=== PATIENT | female | born 1955 | race Caucasian/White ===

== ENCOUNTER 2017-10-01 19:51 | Emergency (ER) | payer OTHER ==
[~2017-10-01] VITALS: Ht 160 cm; Wt 44.0 kg
[2017-10-01 20:17] LABS: BASOPHIL (%) 0.2 % (0-1); EOSINOPHIL (%) 0 % (0-5); HEMATOCRIT 44.1 % (36.0-46.0); HEMOGLOBIN 15.7 G/DL (11.9-15.5); IMMATURE GRANULOCYTE (%) 0.7 % (0.0-0.7); LYMPHOCYTE COUNT 0.8 K/uL (1.0-2.8); MCH 31.6 PG (29.0-34.0); MCHC 35.6 G/DL (30.0-36.0); MCV 88.7 FL (83-99); MONOCYTE (%) 0.8 % (3-12); MONOCYTE COUNT 0.1 K/uL (0-0.8); NEUTROPHIL (%) 89.3 % (45-76); NEUTROPHIL COUNT 7.7 K/uL (1.8-6.4); PLATELET COUNT 317 K/uL (156-360); RBC DIS.WIDTH-CV 13.1 % (11.8-14.6); RBC DIS.WIDTH-SD 42.4 % (39-53); RED BLOOD COUNT 4.97 M/uL (3.80-5.20); WHITE BLOOD COUNT 8.7 K/uL (4.1-10.2)
[2017-10-01 20:37] LABS: D-DIMER ELISA < 150.00 ng/mLDDU (<230)
[2017-10-01 20:38] LABS: ALBUMIN 4.2 g/dL (3.2-4.8); CHLORIDE 92 mEq/L (99-109); POTASSIUM 4.3 mEq/L (3.7-5.4); SODIUM 129 mEq/L (136-147)
[2017-10-01 20:40] LABS: GLUCOSE 180 mg/dL (70-99); TOTAL PROTEIN 7.3 g/dL (6.4-8.3)
[2017-10-01 20:42] LABS: TOTAL BILIRUBIN 0.3 mg/dL (0.0-1.0)
[2017-10-01 20:44] LABS: ALKALINE PHOSPHATASE 66 IU/L (3-129); CREATININE 0.6 mg/dL (0.6-1.3); GFR ESTIMATE (CALCULATED) > 59 mL/min/
[2017-10-01 20:45] LABS: UREA NITROGEN (BUN) 10 mg/dL (9-23)
[2017-10-01 20:46] LABS: AST (GOT) 31 IU/L (2-34)
[2017-10-01 20:47] LABS: ALT (GPT) 25 IU/L (3-49)
[2017-10-01 20:48] LABS: TROP-I INTERPRETATION NEGATIVE; TROPONIN-I < 0.01 ng/mL (0.0-0.30)
[2017-10-01] MEDS ORDERED: PREDNISONE20 MG PO (22:56)
[2017-10-01 23:15] VITALS: BP 139/83
== END 2017-10-01 23:31 | disposition home or self-care (01) ==
LOC: EME → EDBD 19:51 → EME 23:31
PROVIDERS: Emergency Medicine
DX: J44.1 Chronic obstructive pulmonary disease with (acute) exacerbation (principal); E87.1 Hypo-osmolality and hyponatremia; F41.9 Anxiety disorder, unspecified; R00.0 Tachycardia, unspecified; Z72.0 Tobacco use
CPT/HCPCS: 71046; 80053; 83880; 84484; 85025; 85379; 93005; 94640; 99281; 99285; J7040